=== PATIENT | female | born 1950 | race Caucasian/White ===

== ENCOUNTER 2016-10-05 13:13 | Emergency (ER) | payer MEDICARE ==
[2016-10-05] MEDS ORDERED: PREDNISONE 20 MG TAB PO ONE (13:25)
[2016-10-05] MEDS ORDERED: IPRATROPIUM/ALBUTEROL (0.5MG/3MG) NEB INH ONE (13:25)
[2016-10-05] MEDS ORDERED: BENZONATATE 100 MG CAPSULE PO ONE (13:28)
--- NOTE | 2016-10-05 13:31 | Emergency Department Record ---
History of Present Illness - General Chief Complaint: Cough Stated Complaint: COUGH Time Seen by Provider: 10/05/16 13:25 Source: Patient, Family Mode of Arrival: Ambulatory Limitations: No limitations - History of Present Illness Initial Comments: 65 yo female presents with one week of a cough, congestion and subjective fevers. The cough became productive in the last day. She denies nausea, vomiting or diarrhea. No edema. She saw her PCP on Friday and was treated with a ZPack. She has not improved. No history of asthma. She has had pneumonia. No DM or CAD. MD Complaint: Cough, Nasal congestion -: Days(s) (7) Severity: Moderate Quality: Aching Consistency: Constant Improves With: Nothing Worsens With: Other (cough) Context: Sick contacts Associated Symptoms: Cough, Fever, Nasal congestion Treatments Prior to Arrival: Antibiotics (zpack) - Related Data Home Medications Medication Instructions Recorded Confirmed Last Taken Alprazolam [Alprazolam] 1 tab PO DAILY 03/14/14 10/05/16 10/05/16 Cholecalciferol (Vitamin D3) 1,000 unit PO DAILY 03/14/14 10/05/16 10/05/16 [Vitamin D] Metoprolol Succinate 100 mg PO DAILY 03/14/14 10/05/16 10/05/16 Valsartan [Diovan] 1 tab PO DAILY 03/14/14 10/05/16 10/05/16 Venlafaxine HCl [Venlafaxine HCl 1 tab PO DAILY 03/14/14 10/05/16 10/05/16 ER] Previous Rx's Medication Instructions Recorded Ondansetron [Zofran Odt] 4 mg PO Q8H #10 tab.rapdis 03/18/14 Benzonatate [Tessalon] 1 cap PO Q8H PRN #30 cap 10/05/16 Ipratropium/Albuterol [Duoneb] 3 ml IH Q4H #60 ampul.neb. 10/05/16 Prednisone [Prednisone 20Mg] 20 mg PO BID #10 tab 10/05/16 Allergies Allergy/AdvReac Type Severity Reaction Status Date / Time clindamycin AdvReac DIARRHEA Verified 10/05/16 13:29 codeine AdvReac NAUSEA AND Verified 10/05/16 13:29 VOMITING Review of Systems Constitutional: Reports: Fever. Denies: Chills, Malaise, Weakness Eyes: Denies: Eye discharge, Eye pain, Photophobia, Vision change ENT: Reports: Congestion. Denies: Dental pain, Ear pain, Epistaxis, Throat pain Respiratory: Reports: Cough, Dyspnea, Wheezes. Denies: Hemoptysis, Stridor Cardiovascular: Denies: Chest pain, Palpitations, Syncope Endocrine: Denies: Fatigue, Polydipsia, Polyuria Gastrointestinal: Denies: Abdominal pain, Diarrhea, Hematochezia, Vomiting Genitourinary: Denies: Dysuria, Urgency Musculoskeletal: Denies: Arthralgia, Back pain, Joint swelling, Myalgia Skin: Denies: Bruising, Change in color, Rash Neurological: Denies: Confusion, Headache Psychiatric: Denies: Anxiety Hematological/Lymphatic: Denies: Blood Clots, Easy bleeding, Easy bruising, Swollen glands Past Medical History - SOCIAL HISTORY Smoking Status: Never smoker - RESPIRATORY Hx Respiratory Disorders: Yes Hx Pneumonia: Yes Hx Sleep Apnea: Yes - CARDIOVASCULAR Hx Cardio Disorders: Yes Hx Hypertension: Yes - NEURO Hx Neuro Disorders: No - GI Hx GI Disorders: Yes Hx Reflux: Yes Hx Irritable Bowel: Yes - Hx Genitourinary Disorders: No - ENDOCRINE Hx Endocrine Disorders: No Hx Diabetes: No Hx Thyroid Disease: No - MUSCULOSKELETAL Hx Musculoskeletal Disorders: Yes Hx Arthritis: Yes (fibromyalgia) Hx Fibromyalgia: Yes - PSYCH Hx Psych Problems: Yes Hx Anxiety: Yes Hx Depression: Yes - HEMATOLOGY/ONCOLOGY Hx Hematology/Oncology Disorders: No Family Medical History Hx Cancer: Brother/Sister Hx Dementia: Father, Mother Hx Depression: Father Hx Heart Disease: Father Hx HTN: Father Hx Stroke: Father Physical Exam - General General Appearance: Alert, Oriented x3, Cooperative, No acute distress, Other ( Frequent harsh cough) Limitations: No limitations - Head Head exam: Normal inspection - Eye Eye exam: Normal appearance, PERRL - ENT ENT exam: Normal exam, Mucous membranes moist, Normal external ear exam, Normal orophraynx Ear exam: Normal external inspection. negative: External canal tenderness Nasal Exam: Normal inspection. negative: Discharge, Sinus tenderness Mouth exam: Normal external inspection, Tongue normal Teeth exam: Normal inspection. negative: Dental caries Throat exam: Normal inspection. negative: Tonsillar erythema, Tonsillar exudate - Neck Neck exam: Normal inspection, Full ROM. negative: Tenderness - Respiratory Respiratory exam: Decreased breath sounds, Prolonged expiratory, Rhonchi, Wheezes, Other (No distress, frequent hacking cough). negative: Normal lung sounds bilaterally, Accessory muscle use, Rales, Respiratory distress, Stridor - Cardiovascular Cardiovascular Exam: Regular rate, Normal rhythm, Normal heart sounds - GI/Abdominal GI/Abdominal exam: Soft - Rectal Rectal exam: Deferred - exam: Deferred - Extremities Extremities exam: Normal inspection, Full ROM, Normal capillary refill. negative: Pedal edema, Tenderness - Back Back exam: Reports: Normal inspection, Full ROM. Denies: CVA tenderness (R), CVA tenderness (L), Muscle spasm, Paraspinal tenderness, Rash noted, Tenderness , Vertebral tenderness - Neurological Neurological exam: Alert, Normal gait, Oriented X3 - Psychiatric Psychiatric exam: Normal affect, Normal mood. negative: Agitated, Anxious - Skin Skin exam: Dry, Intact, Normal color, Warm Course - Reevaluation(s) Reevaluation #1: The influenza swabs are negative for A and B 10/05/16 14:17 Reevaluation #2: The CXR was read as no acute process. No infiltrate 10/05/16 14:28 Disposition Disposition: Discharge Clinical Impression: Bronchitis Disposition: Home, Self-Care Condition: (1) Good Instructions: Acute Bronchitis (ED) Additional Instructions: Call your doctor Friday for a close follow up recheck Take the Prednisone as directed twice daily Take the Tessalon as directed for cough Use a humidifier for comfort as well You may use your nebulizer every 4 hours as needed Prescriptions: Ipratropium/Albuterol [Duoneb] 3 ml IH Q4H #60 ampul.neb. Prednisone [Prednisone 20Mg] 20 mg PO BID #10 tab Benzonatate [Tessalon] 1 cap PO Q8H PRN #30 cap PRN Reason: Cough Forms: Patient Portal Access Time of Disposition: 14:35
[2016-10-05 14:09] LABS: INFLUENZA A NEGATIVE (NEGATIVE); INFLUENZA B NEGATIVE (NEGATIVE)
== END 2016-10-05 14:55 | disposition home or self-care (01) ==
LOC: ER 13:13
DX: J20.9 Acute bronchitis, unspecified (principal)
CPT/HCPCS: 99283 ×2; 87400; 71020; 94640; J7512